=== PATIENT | male | born 1940 | race Caucasian/White ===

== ENCOUNTER 2018-04-21 14:06 | Outpatient (CLI) | payer MEDICARE ==
--- NOTE | 2018-04-21 15:05 | RAD ---
PA AND LATERAL CHEST: History: Cough, wheezing, shortness of breath. Comparison: 09-28-17 FINDINGS: Heart size appears borderline enlarged. There are atherosclerotic changes of the aorta. Chronic lung changes are seen. There are areas of what appear to be some pleural based nodularity or scarring. I c annot exclude the possibility of asbestosis exposure. There is some minimal calcification along the r ight hemidiaphragm. These findings all appear stable. IMPRESSION: Chronic lung change. Stable exam. POS: ERROL
== END 2018-04-21 14:07 | disposition home or self-care (01) ==
LOC: RAD 14:06
PROVIDERS: ATTEND Internal Medicine Pulmonary Disease
DX: R06.00 Dyspnea, unspecified (principal)
CPT/HCPCS: 71046